=== PATIENT | male | born 2000 ===

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

== ENCOUNTER 2023-01-25 14:37 | Outpatient (CLI) | payer OTHER, SELFPAY ==
--- NOTE | 2023-01-25 | DI.MRI_ITS ---
Exam(s) MR LUMBAR SPINE WO EXAM: MR LUMBAR SPINE WO CLINICAL HISTORY: 3 WKS BACK PAIN,DIMINISHED RT SIDE ACHILLES REFLEX,NUMBNESS RT FOOT,m54.50. TECHNIQUE: Multiplanar multisequence MRI of the Lumbar spine was performed. COMPARISON: No exams were available for comparison FINDINGS: Bones: The last intervertebral disc space is designated the L5/S1 level for the numbering purpose of this examination. The vertebral body heights are well maintained. Alignment is satisfactory. The si gnal characteristics are unremarkable. Cord: The conus tip ends at the L1 level. It is of normal size and signal intensity. T12-L1: No disc herniations or bulges are present. No central spinal canal or neural foraminal stenos is. L1-2: No disc herniations or bulges are present. No central spinal canal or neural foraminal stenosis . L2-3: There is disc desiccation but no focal disc herniation or bulge is present. No central spinal canal or neural foraminal stenosis. L3-4: No disc herniations or bulges are present. No central spinal canal or neural foraminal stenosis . L4-5: No disc herniations or bulges are present. No central spinal canal or neural foraminal stenosis . L5-S1: There is a moderate size right paracentral disc herniation causing right lateral recess stenos is and compressing the right S1 nerve root. It is extruded posterior to the S1 vertebral body. No c entral spinal canal or neural foraminal stenosis. Soft tissues: The visualized SI joints and sacrum are well maintained. The paraspinal soft tissues ar e unremarkable. IMPRESSION: Moderate size right paracentral disc herniation at L5-S1 with extrusion posterior to the S1 vertebral body. It causes right lateral recess stenosis, compressing the right S1 nerve root. DATA REPOSITORY:
== END 2023-01-25 14:57 ==
PROVIDERS: Visit Provider Nurse Practitioner Primary Care
DX: M54.50 Low back pain, unspecified (principal)
CPT/HCPCS: 72148